=== PATIENT | male | born 1990 | race Caucasian/White ===

== ENCOUNTER 2018-10-09 13:26 | Emergency (ER) | payer OTHER, SELFPAY ==
[2018-10-09] MEDS ORDERED: predniSONE 20 MG TAB ONE (13:30)
== END 2018-10-09 13:49 | disposition home or self-care (01) ==
LOC: BURERS 13:26
DX: J45.909 Unspecified asthma, uncomplicated (principal); F17.210 Nicotine dependence, cigarettes, uncomplicated; F41.9 Anxiety disorder, unspecified; Z79.899 Other long term (current) drug therapy
CPT/HCPCS: 99284; J7512; J7620